=== PATIENT | female | born 1930 | race Caucasian/White ===

== ENCOUNTER 2019-02-17 14:46 | Emergency (ER) | payer MEDICARE, BC ==
[2019-02-17] MEDS ORDERED: Sodium Chloride 0.9% 10 ML Syringe FLUSH PRN (14:52)
--- NOTE | 2019-02-17 15:27 | CT ---
Head CT Technique: Multiple axial sections through the brain were obtained. Intravenous contrast was not utilized. The first exam showed motion artifact and the study was repeated. Comparison: No prior intracranial imaging. Findings: Ventricles along with basal cisterns and sulci over the convexities are moderately prominent. Diminished density is noted within the periventricular and subcortical white matter which is compatible with small vessel ischemic demyelination change. 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 No other abnormal parenchymal densities are seen. No evidence of intracranial hemorrhage. No midline shift or mass effect is seen. Bone window settings were reviewed which show no acute calvarial abnormality. Visualized mastoid sinuses and visualized paranasal sinuses are clear. Impression: 1. Senescent change as described above. 2. No acute intracranial abnormality is identified. Diagnostic code #2 This report was dictated in [place] Standard Time
[2019-02-17] MEDS ORDERED: Sodium Chloride 0.9% 500 ML IV ONE (16:05)
[2019-02-17] MEDS ORDERED: Aspirin 81 MG Tab.Chew PO ONE (16:24)
[2019-02-17] MEDS ORDERED: Potassium Chloride 10 MEQ in Premix Bag 1 BAG IV SCH (16:30)
[2019-02-17] MEDS ORDERED: Aspirin 300 MG Supp RECTAL ONE (17:25)
--- NOTE | 2019-02-17 17:29 | EDM.PDOC ---
ED HPI GENERAL MEDICAL PROBLEM - General Chief Complaint: Neuro Symptoms/Deficits Stated Complaint: [facility] Time Seen by Provider: 02/17/19 14:52 Source of Information: Reports: Patient, EMS, Family History Limitations: Reports: No Limitations - History of Present Illness INITIAL COMMENTS - FREE TEXT/NARRATIVE: The patient presents by [facility] for a fall and left sided weakness. Her last time known well was yesterday at 9am. Family could not get intact with her this morning so they went to check on her. They found her on the floor and it appeared she was crawling on the floor. She was weak in the left leg and arm. She may have hit her head but had no LOC. She has no headache, neck pain, chest pain, shortness of breath, abdominal pain, nausea or vomiting. She does have some abrasions to her legs. She has not been to a doctor in over 30 years. Onset: Sudden Duration: Day(s): (Yesterday) Improves with: Reports: None Worsens with: Reports: None Associated Symptoms: Reports: No Other Symptoms - Related Data Allergies Allergy/AdvReac Type Severity Reaction Status Date / Time No Known Allergies Allergy Verified 02/17/19 15:15 Home Meds: Home Meds . [No Known Home Meds] 02/17/19 [History] ED ROS GENERAL - Review of Systems Review Of Systems: See Below Constitutional: Reports: No Symptoms HEENT: Reports: No Symptoms Respiratory: Reports: No Symptoms Cardiovascular: Reports: No Symptoms Endocrine: Reports: No Symptoms GI/Abdominal: Reports: No Symptoms : Reports: No Symptoms Musculoskeletal: Reports: Other (Skin tears to her legs and abrasions) ED EXAM, NEURO - Physical Exam Exam: See Below Exam Limited By: No Limitations General Appearance: Alert, No Apparent Distress Ears: Normal External Exam Nose: Normal Inspection Head Exam: Atraumatic, Normocephalic Neck: Normal Inspection Respiratory/Chest: No Respiratory Distress, Lungs Clear, Normal Breath Sounds Cardiovascular: Regular Rate, Rhythm, No Edema, No Murmur GI/Abdominal: Soft, Non-Tender, No Organomegaly, No Mass Neurological: Alert, Oriented x 3, Other (Mild to moderate weakness to the left arm and leg without facial droop) Extremities: Other (abrasions and skin tears to both legs) EKG INTERPRETATION EKG Date: 02/17/19 Time: 15:15 Rhythm: NSR Rate (Beats/Min): 86 [place]: Normal P-Wave: Present QRS: Normal ST-T: Normal QT: Normal EKG Interpretation Comments: PVCs and PACs Course - Vital Signs Last Recorded V/S: Last Vital Signs Temp 97.3 F 02/17/19 15:09 Pulse 90 02/17/19 15:09 Resp 18 02/17/19 15:09 BP 144/94 H 02/17/19 15:09 Pulse Ox 88 L 02/17/19 15:09 - Orders/Labs/Meds Orders: Active Orders 24 hr Category Date Time Status Cardiac Monitoring [RC] . DIRECTED Care 02/17/19 14:53 Active EKG Documentation Completion [RC] STAT Care 02/17/19 14:53 Active Oxygen Therapy [RC] PRN Care 02/17/19 14:53 Active Peripheral IV Care [RC] . DIRECTED Care 02/17/19 14:53 Active Chest 1V Frontal [CR] Stat Exams 02/17/19 14:54 Taken UA W/MICROSCOPIC [URIN] Stat Lab 02/17/19 14:52 Ordered Aspirin Med 02/18/19 17:22 Once 300 mg RECTAL BEDTIME ONE Potassium Chloride [KCl 10 MEQ in Water 100 ML] 10 meq Med 02/17/19 16:30 Active Premix Bag 1 bag IV ASDIRECTED Sodium Chloride 0.9% [Saline Flush] Med 02/17/19 14:52 Active 10 ml FLUSH ASDIRECTED PRN Peripheral IV Insertion Adult [OM.PC] Stat Oth 02/17/19 14:52 Ordered Medication Orders Aspirin (Aspirin) 300 mg RECTAL BEDTIME ONE Stop: 02/18/19 17:23 Potassium Chloride 10 meq/ (Premix) 100 mls @ 100 mls/hr IV ASDIRECTED INESSA Last Admin: 02/17/19 16:36 Dose: 100 mls/hr Sodium Chloride (Saline Flush) 10 ml FLUSH ASDIRECTED PRN PRN Reason: Keep Vein Open Last Admin: 02/17/19 15:29 Dose: 10 ml Labs: Laboratory Tests 02/17/19 02/17/19 02/17/19 Range/Units 15:10 15:10 15:10 WBC 22.52 H (3.98-10.04) K/mm3 RBC 4.40 (3.98-5.22) M/mm3 Hgb 11.4 (11.2-15.7) gm/dl Hct 35.0 (34.1-44.9) % MCV 79.5 (79.4-94.8) fl MCH 25.9 (25.6-32.2) pg MCHC 32.6 (32.2-35.5) g/dl RDW Std Deviation 45.5 (36.4-46.3) fL Plt Count 291 (182-369) K/mm3 MPV 8.9 L (9.4-12.3) fl Neut % (Auto) 74.3 H (34.0-71.1) % Lymph % (Auto) 17.5 L (19.3-51.7) % [place] % (Auto) 7.7 (4.7-12.5) % Eos % (Auto) 0 L (0.7-5.8) Baso % (Auto) 0.1 (0.1-1.2) % Neut # (Auto) 16.73 H (1.56-6.13) K/mm3 Lymph # (Auto) 3.95 H (1.18-3.74) K/mm3 [place] # (Auto) 1.74 H (0.24-0.36) K/mm3 Eos # (Auto) 0.00 L (0.04-0.36) K/mm3 Baso # (Auto) 0.02 (0.01-0.08) K/mm3 Manual Slide Review Abnormal smear PT 11.9 (9.7-12.0) SECONDS INR 1.10 APTT 30 (22-31) SECONDS Sodium 136 (136-145) mEq/L Potassium 2.8 L (3.5-5.1) mEq/L Chloride 98 (98-107) mEq/L Carbon Dioxide 24 (21-32) mEq/L Anion Gap 16.8 H (5-15) BUN 17 (7-18) mg/dL Creatinine 1.0 (0.55-1.02) mg/dL Est Cr Clr Drug Dosing 27.85 mL/min Estimated GFR (MDRD) 52 (>60) mL/min BUN/Creatinine Ratio 17.0 (14-18) Glucose 133 H (83-115) mg/dL Calcium 9.6 (8.5-10.1) mg/dL Total Bilirubin 1.4 H (0.2-1.0) mg/dL AST 98 H (15-37) U/L ALT 25 (14-59) U/L Alkaline Phosphatase 95 (46-116) U/L Creatine Kinase (26-192) U/L Troponin I 4.604 H* (0.00-0.056) ng/mL C-Reactive Protein 15.3 H* (<1.0) mg/dL Total Protein 8.1 (6.4-8.2) g/dl Albumin 2.7 L (3.4-5.0) g/dl Globulin 5.4 gm/dL Albumin/Globulin Ratio 0.5 L (1-2) 02/17/19 Range/Units 15:10 WBC (3.98-10.04) K/mm3 RBC (3.98-5.22) M/mm3 Hgb (11.2-15.7) gm/dl Hct (34.1-44.9) % MCV (79.4-94.8) fl MCH (25.6-32.2) pg MCHC (32.2-35.5) g/dl RDW Std Deviation (36.4-46.3) fL Plt Count (182-369) K/mm3 MPV (9.4-12.3) fl Neut % (Auto) (34.0-71.1) % Lymph % (Auto) (19.3-51.7) % [place] % (Auto) (4.7-12.5) % Eos % (Auto) (0.7-5.8) Baso % (Auto) (0.1-1.2) % Neut # (Auto) (1.56-6.13) K/mm3 Lymph # (Auto) (1.18-3.74) K/mm3 [place] # (Auto) (0.24-0.36) K/mm3 Eos # (Auto) (0.04-0.36) K/mm3 Baso # (Auto) (0.01-0.08) K/mm3 Manual Slide Review PT (9.7-12.0) SECONDS INR APTT (22-31) SECONDS Sodium (136-145) mEq/L Potassium (3.5-5.1) mEq/L Chloride (98-107) mEq/L Carbon Dioxide (21-32) mEq/L Anion Gap (5-15) BUN (7-18) mg/dL Creatinine (0.55-1.02) mg/dL Est Cr Clr Drug Dosing mL/min Estimated GFR (MDRD) (>60) mL/min BUN/Creatinine Ratio (14-18) Glucose (83-115) mg/dL Calcium (8.5-10.1) mg/dL Total Bilirubin (0.2-1.0) mg/dL AST (15-37) U/L ALT (14-59) U/L Alkaline Phosphatase (46-116) U/L Creatine Kinase 1588 H (26-192) U/L Troponin I (0.00-0.056) ng/mL C-Reactive Protein (<1.0) mg/dL Total Protein (6.4-8.2) g/dl Albumin (3.4-5.0) g/dl Globulin gm/dL Albumin/Globulin Ratio (1-2) Meds: Medications Generic Name Dose Route Start Last Admin Trade Name Freq PRN Reason Stop Dose Admin Aspirin 300 mg 02/18/19 17:22 Aspirin RECTAL 02/18/19 17:23 BEDTIME ONE Potassium Chloride 10 meq/ 100 mls @ 100 mls/hr 02/17/19 16:30 02/17/19 16:36 Premix IV 100 mls/hr ASDIRECTED INESSA Administration Sodium Chloride 10 ml 02/17/19 14:52 02/17/19 15:29 Saline Flush FLUSH 10 ml ASDIRECTED PRN Administration Keep Vein Open Discontinued Medications Generic Name Dose Route Start Last Admin Trade Name Freq PRN Reason Stop Dose Admin Aspirin 324 mg 02/17/19 16:24 Aspirin PO 02/17/19 16:25 ONETIME ONE Sodium Chloride 500 mls @ 1,000 mls/hr 02/17/19 16:05 02/17/19 16:36 Normal Saline IV 02/17/19 16:34 1,000 mls/hr .BOLUS ONE Administration - Re-Assessments/Exams Free Text/Narrative Re-Assessment/Exam: 02/17/19 17:39 A stroke alert was called and the patient's last time known well was yesterday at 9am. I ordered a saline lock, EKG, CT of her head, and labs. Her EKG shows a NSR with no acute changes. Her CT shows senescent change. No acute intracranial abnormality is identified. Her WBC is elevated at 22.52. Her PT and PTT look good. Her K is low at 2.8. I did order some K. Her anion gap is elevated at 16.8. Her glucose is elevated at 133. Her AST is elevated at 98. Her CK is elevated at 1588. Her troponin is 4.604. It appears she has a CVA. I ordered aspirin OR. She failed her swallow test. I felt the patient needed to be admitted in [place] where they have cardiology and neuro. She did not want to go. I talked with our hospitalist and Dr Cannon felt she needed to go down and she talked her into it. I called [facility] in [place] and talked with Dr Castañeda in the ER and he accepted the patient. I will be flying the patient. 02/17/19 17:48 NIH score was 5 and repeat one was a 6. Departure - Departure Time of Disposition: 17:50 Disposition: DC/Tfer to Acute Hospital 02 Condition: Serious Clinical Impression: Elevated troponin Cerebrovascular accident (CVA) Qualifiers: CVA mechanism: unspecified Qualified Code(s): I63.9 - Cerebral infarction, unspecified - Discharge Information Referrals: PCP,Unknown [Primary Care Provider] - Sepsis Event Note - Evaluation Sepsis Screening Result: No Definite Risk - Focused Exam Vital Signs: Vital Signs Temp Pulse Resp BP Pulse Ox Pulse Ox 02/17/19 15:09 97.3 F 90 18 144/94 H 88 L 02/17/19 14:46 98 Date Exam was Performed: 02/17/19 Time Exam was Performed: 17:23 - My Orders Last 24 Hours: My Active Orders 02/17/19 14:52 UA W/MICROSCOPIC [URIN] Stat Sodium Chloride 0.9% [Saline Flush] 10 ml FLUSH ASDIRECTED PRN Peripheral IV Insertion Adult [OM.PC] Stat 02/17/19 14:53 Cardiac Monitoring [RC] . DIRECTED EKG Documentation Completion [RC] STAT Oxygen Therapy [RC] PRN Peripheral IV Care [RC] . DIRECTED 02/17/19 14:54 Chest 1V Frontal [CR] Stat 02/17/19 16:30 Potassium Chloride [KCl 10 MEQ in Water 100 ML] 10 meq Premix Bag 1 bag IV ASDIRECTED 02/18/19 17:22 Aspirin 300 mg RECTAL BEDTIME ONE - Assessment/Plan Last 24 Hours: My Active Orders 02/17/19 14:52 UA W/MICROSCOPIC [URIN] Stat Sodium Chloride 0.9% [Saline Flush] 10 ml FLUSH ASDIRECTED PRN Peripheral IV Insertion Adult [OM.PC] Stat 02/17/19 14:53 Cardiac Monitoring [RC] . DIRECTED EKG Documentation Completion [RC] STAT Oxygen Therapy [RC] PRN Peripheral IV Care [RC] . DIRECTED 02/17/19 14:54 Chest 1V Frontal [CR] Stat 02/17/19 16:30 Potassium Chloride [KCl 10 MEQ in Water 100 ML] 10 meq Premix Bag 1 bag IV ASDIRECTED 02/18/19 17:22 Aspirin 300 mg RECTAL BEDTIME ONE
--- NOTE | 2019-02-18 10:51 | CR ---
Chest: Portable view of the chest was obtained. Comparison: No prior chest imaging. Opacified left chest is seen. Right lung is clear. Heart size is mildly enlarged. Tortuous thoracic aorta is seen. Impression: 1. Opacified left chest. Uncertain how much of this represents elevated left hemidiaphragm or diaphragmatic herniation as well as loculated pleural effusion or even lung mass or lung consolidation. 2. Right lung is clear. 3. Other findings as noted above. Note: Chest CT would be helpful to further evaluate. Diagnostic code #9 This report was dictated in [place] Standard Time
[2019-02-18] MEDS ORDERED: Aspirin 300 MG Supp RECTAL ONE (17:22)
== END 2019-02-17 18:00 ==
LOC: JD.ED 14:46
DX: I63.9 Cerebral infarction, unspecified (principal); S81.812A Laceration without foreign body, left lower leg, initial encounter; S81.811A Laceration without foreign body, right lower leg, initial encounter; R79.89 Other specified abnormal findings of blood chemistry; W19.XXXA Unspecified fall, initial encounter
CPT/HCPCS: 36415; 70450; 71045; 80053; 82550; 84484; 85025; 85610; 85730; 86140; 93005; 96365; 99285; A9270; J3480; J7030; 93010; 99284